=== PATIENT | male | born 1985 | race Hispanic/Latino ===

== ENCOUNTER → 2020-01-03 | Outpatient (CLI) | payer OTHER ==
[~2020-01-03] MED LIST: ASPI-556 PO; HYDR-3422 PO; INSU100V12 SQ; INSU100V3 SQ; LINA5TAB PO; METF-446 PO; OLME40TA18 PO; VORT20TA PO
== END | disposition home or self-care (01) ==
LOC: RAH 14:12
PROVIDERS: ATTEND Internal Medicine Cardiovascular Disease
DX: Z13.6 Encounter for screening for cardiovascular disorders (principal)
CPT/HCPCS: 75571

== ENCOUNTER 2020-06-09 17:34 | Inpatient (IN) | payer OTHER ==
[~2020-06-09] VITALS: Ht 182.9 cm; Wt 148.8 kg
[2020-06-09 19:19] LABS: BASOPHILS % (AUTO) 0.6 % (0.0-5.0); EOSINOPHILS % (AUTO) 0.6 % (0.0-8.0); HEMATOCRIT 27.4 % (42-54); MEAN CORPUSCULAR HEMOGLOBIN 25.6 pg (27.0-33.0); MEAN CORPUSCULAR HGB CONC 31.8 g/dL (32.0-36.0); MEAN CORPUSCULAR VOLUME 80.6 fL (79-99); MONOCYTES % (AUTO) 6.3 % (3.0-13.0); NEUTROPHILS % (AUTO) 82.7 % (40.0-77.0); PLATELET COUNT (AUTO) 565 K/uL (130-400); RED CELL DISTRIBUTION WIDTH 12.8 % (11.0-15.5); WHITE BLOOD COUNT (AUTO) 15.8 K/uL (4.8-10.8)
[2020-06-09 19:31] LABS: CARBON DIOXIDE 23 mmol/L (21-32); CHLORIDE 99 mmol/L (101-111); CREATININE 2.2 mg/dL (0.5-1.5); GLOMERULAR FILTR. RATE CALC 37 mL/min (>60); GLUCOSE,RANDOM 183 mg/dL (70-105); POTASSIUM 4.2 mmol/L (3.5-5.1); SODIUM SERUM 131 mmol/L (136-145); UREA NITROGEN, BLOOD 44 mg/dL (7-18)
[2020-06-09 19:35] LABS: INR 1.17 (0.85-1.15); PROTHROMBIN TIME 12.3 SEC (9.6-11.6)
[2020-06-09 19:36] LABS: PARTIAL THROMBOPLASTIN TIME 27.5 SEC (26.3-35.5)
[2020-06-09 19:43] LABS: ALANINE AMINOTRANSFERASE 15 U/L (12-78); ALBUMIN 1.9 g/dL (3.5-5.0); ASPARTATE AMINOTRANSFERASE 24 U/L (10-37); BILIRUBIN,TOTAL 0.2 mg/dL (0.2-1.0); CREATINE KINASE, TOTAL 225 U/L (21-232); MYOGLOBIN 222 ng/mL (10-92); TROPONIN I < 0.04 ng/mL (0.00-0.06)
[2020-06-09] MEDS ORDERED: ZOSYN 3.375GM+NS 50ML 50 ML IV ONE (21:09)
[2020-06-09] MEDS ORDERED: ACETAMINOPHEN 500 MG TABLET ONE (21:10)
[2020-06-09 21:11] LABS: APPEARANCE,URINE Cloudy (CLEAR); BILIRUBIN,URINE Negative (NEGATIVE); COLOR,URINE Yellow (YELLOW); GLUCOSE, URINE (UA) 250 mg/dL (NEGATIVE); KETONES,URINE Negative (NEGATIVE); LEUKOCYTE ESTERASE ,URINE Trace (NEGATIVE); NITRATE,URINE Negative (NEGATIVE); OCCULT BLOOD,URINE Moderate (NEGATIVE); PROTEIN,URINE 300 mg/dL (NEGATIVE)
[2020-06-09 21:16] LABS: AMORPHOUS SEDIMENT,UR Many /LPF (None Seen); BACTERIA,URINE Few /HPF (None Seen); HYALINE CASTS, URINE 0-1 /LPF (0-1 /LPF); RBC,URINE 0-1 /HPF (0-1); SQUAMOUS EPITHELIAL CELL,UR None Seen /HPF (0-2)
[2020-06-09] MEDS ORDERED: DEXTROSE 50%-WATER 50 ML DISP.SYRIN IV PRN (21:30)
[2020-06-09] MEDS ORDERED: CEFTRIAXONE 1G VIAL IV SCH (21:30)
[2020-06-09] MEDS ORDERED: POTASSIUM CHLORIDE 10% ELIXIR 20 MEQ/15 ML UDCUP PO PRN (21:30)
[2020-06-09] MEDS ORDERED: ONDANSETRON 4MG INJ IV PRN (21:30)
[2020-06-09] MEDS ORDERED: LACTULOSE 20 GM/30 ML UDCUP PO PRN (21:30)
[2020-06-09] MEDS ORDERED: ACETAMINOPHEN 325 MG TAB PO PRN (21:30)
[2020-06-09] MEDS ORDERED: KCL 20 MEQ ERTAB PO PRN (21:30)
[2020-06-09] MEDS ORDERED: MAG/ALUM/SIMETH 30 ML UDCUP PO PRN (21:30)
[2020-06-09] MEDS ORDERED: NITROGLYCERIN 0.4 MG SL TAB SL PRN (21:30)
[2020-06-09] MEDS ORDERED: POTASSIUM CHLORIDE 20MEQ/100ML 100 ML IV PRN ×2 (21:30)
[2020-06-09] MEDS: LACTATED RINGERS 1000ML 1,000 ML IV SCH (21:30)
[2020-06-09] MEDS ORDERED: GUAIFENESIN-DM 200/20 MG 10 ML PO PRN (21:30)
[2020-06-09] MEDS ORDERED: GLUCAGON 1MG KIT 1 MG ML IM PRN (21:30)
[2020-06-09] MEDS ORDERED: DiphenhydrAMINE HCL 50 MG/ML VIAL IV PRN (21:30)
[2020-06-10] VITALS (21 sets, daily range): BP systolic 103–150; BP diastolic 53–83
[2020-06-10] MEDS ORDERED: CEFTRIAXONE 1G VIAL ONE (00:40)
[2020-06-10] MEDS ORDERED: LACTATED RINGERS 1000ML 1,000 ML IV ONE (00:40)
[2020-06-10] MEDS ORDERED: SERT-439 PO (03:07)
[2020-06-10] MEDS ORDERED: CLOP75TA14 PO (03:07)
[2020-06-10] MEDS ORDERED: PANT40TA54 PO (03:07)
[2020-06-10] MEDS: ZOSYN 3.375GM+NS 50ML 50 ML IV SCH ×3 (05:37→22:14)
[2020-06-10] MEDS: INSULIN HUMULIN R 100 UNIT/ML 3ML SQ SCH ×6 (05:46→21:00)
[2020-06-10 06:26] LABS: BASOPHILS % (AUTO) 0.8 % (0.0-5.0); EOSINOPHILS % (AUTO) 2.5 % (0.0-8.0); HEMATOCRIT 25.3 % (42-54); LYMPHOCYTES % (AUTO) 15.1 % (21.0-51.0); MEAN CORPUSCULAR HEMOGLOBIN 25.4 pg (27.0-33.0); MEAN CORPUSCULAR HGB CONC 31.6 g/dL (32.0-36.0); MEAN CORPUSCULAR VOLUME 80.3 fL (79-99); MONOCYTES % (AUTO) 11.9 % (3.0-13.0); NEUTROPHILS % (AUTO) 68.6 % (40.0-77.0); PLATELET COUNT (AUTO) 502 K/uL (130-400); RED BLOOD CELL COUNT(AUTO) 3.15 MIL/uL (4.50-6.20); RED CELL DISTRIBUTION WIDTH 13.1 % (11.0-15.5); WHITE BLOOD COUNT (AUTO) 13.1 K/uL (4.8-10.8)
[2020-06-10 07:14] LABS: ALBUMIN 1.6 g/dL (3.5-5.0); BILIRUBIN,TOTAL 0.3 mg/dL (0.2-1.0); CREATININE 2.4 mg/dL (0.5-1.5); POTASSIUM 4.1 mmol/L (3.5-5.1); TOTAL PROTEIN, SERUM 8.2 g/dL (6.0-8.3)
[2020-06-10] MEDS ORDERED: INSULIN GLARGINE 100 UNITS/ML 10 ML VIAL SQ SCH ×2 (08:30→09:00)
[2020-06-10] MEDS: ENOXAPARIN SODIUM 30 MG/0.3 ML SQ SCH (09:00)
[2020-06-10] MEDS: LACTATED RINGERS 1000ML 1,000 ML IV SCH ×2 (10:28→17:30)
[2020-06-10 11:08] LABS: PROTEIN,URINE RANDOM 162.9 mg/dL (0-11.9)
[2020-06-10] MEDS: ZYVOX 600 MG TAB PO SCH ×2 (11:49→22:14)
[2020-06-10] MEDS ORDERED: BUPIVACAINE/PF 0.5% 30ML VIAL ONE (15:28)
[2020-06-10] MEDS ORDERED: LIDOCAINE HCL 1% 20 ML VIAL ONE (15:28)
[2020-06-10] MEDS ORDERED: 0.9%NACL 1000ML 1,000 ML IV ONE (17:28)
[2020-06-10] MEDS ORDERED: MIDAZOLAM HCL 1 MG/ML 2ML VIAL ONE ×2 (18:15→19:01)
[2020-06-10] MEDS ORDERED: FENTANYL CITRATE PF 50 MCG/1 ML 2ML VIAL ONE ×2 (18:17→18:47)
[2020-06-11] VITALS (9 sets, daily range): BP systolic 110–140; BP diastolic 62–84
[2020-06-11] MEDS: ZOSYN 3.375GM+NS 50ML 50 ML IV SCH ×3 (05:27→21:05)
[2020-06-11] MEDS: INSULIN HUMULIN R 100 UNIT/ML 3ML SQ SCH ×7 (05:36→21:06)
[2020-06-11 06:13] LABS: BASOPHILS % (AUTO) 0.5 % (0.0-5.0); EOSINOPHILS % (AUTO) 2.8 % (0.0-8.0); HEMATOCRIT 21.4 % (42-54); LYMPHOCYTES % (AUTO) 12.9 % (21.0-51.0); MEAN CORPUSCULAR HEMOGLOBIN 25.9 pg (27.0-33.0); MEAN CORPUSCULAR HGB CONC 31.8 g/dL (32.0-36.0); MEAN CORPUSCULAR VOLUME 81.4 fL (79-99); MONOCYTES % (AUTO) 8.7 % (3.0-13.0); NEUTROPHILS % (AUTO) 74.3 % (40.0-77.0); PLATELET COUNT (AUTO) 483 K/uL (130-400); RED BLOOD CELL COUNT(AUTO) 2.63 MIL/uL (4.50-6.20); RED CELL DISTRIBUTION WIDTH 13.1 % (11.0-15.5); WHITE BLOOD COUNT (AUTO) 12.5 K/uL (4.8-10.8)
[2020-06-11 06:35] LABS: HEMOGLOBIN A1C 9.5 % (4.0-6.0)
[2020-06-11 06:43] LABS: % IRON SATURATION 17.5 % (30-44)
[2020-06-11 06:48] LABS: ALBUMIN 1.5 g/dL (3.5-5.0); BILIRUBIN,TOTAL 0.4 mg/dL (0.2-1.0); CREATININE 2.1 mg/dL (0.5-1.5); POTASSIUM 4.3 mmol/L (3.5-5.1); TOTAL PROTEIN, SERUM 7.3 g/dL (6.0-8.3)
[2020-06-11 06:56] LABS: CRP QUANTITATIVE 196.6 mg/L (0.00-9.0)
[2020-06-11] MEDS: INSULIN GLARGINE 100 UNITS/ML 10 ML VIAL SQ SCH (09:00)
[2020-06-11] MEDS: IRON SUCROSE COMPLEX 100 MG in 0.9%NACL 50ML 50 ML IV SCH (09:00)
[2020-06-11] MEDS ORDERED: HYDROMORPHONE 2 MG VIAL (2MG/ML) IVP PRN ×2 (10:58→11:15)
[2020-06-11] MEDS ORDERED: MORPHINE 2 MG SYG IVP PRN ×2 (10:58→11:00)
[2020-06-11] MEDS ORDERED: COMPOUND IV MISC 1 EACH IVSOLN MISC PRN (11:00)
[2020-06-11] MEDS: ZYVOX 600 MG TAB PO SCH ×2 (11:05→21:06)
[2020-06-11] MEDS: ENOXAPARIN SODIUM 30 MG/0.3 ML SQ SCH (11:07)
[2020-06-11] MEDS ORDERED: 0.9% NACL 250ML 250 ML IV ONE (11:26)
[2020-06-11] MEDS ORDERED: FUROSEMIDE 40MG VIAL ONE (13:34)
[2020-06-11] MEDS ORDERED: FUROSEMIDE 40MG VIAL IV SCH (15:15)
[2020-06-11 19:49] LABS: HEMATOCRIT 23.1 % (42-54)
[2020-06-11] MEDS: DIPHENHYDRAMINE HCL 25 MG CAPSULE PO PRN (21:06)
[2020-06-11] MEDS: ACETAMINOPHEN 325 MG TAB PO PRN (21:08)
[2020-06-12 04:00] VITALS: BP 106/61
[2020-06-12] MEDS: ZOSYN 3.375GM+NS 50ML 50 ML IV SCH ×3 (05:54→21:13)
[2020-06-12] MEDS: INSULIN HUMULIN R 100 UNIT/ML 3ML SQ SCH ×7 (05:57→21:00)
[2020-06-12 06:00] LABS: BASOPHILS % (AUTO) 0.9 % (0.0-5.0); EOSINOPHILS % (AUTO) 7.5 % (0.0-8.0); HEMATOCRIT 23.6 % (42-54); LYMPHOCYTES % (AUTO) 19.8 % (21.0-51.0); MEAN CORPUSCULAR HEMOGLOBIN 25.1 pg (27.0-33.0); MEAN CORPUSCULAR HGB CONC 30.5 g/dL (32.0-36.0); MEAN CORPUSCULAR VOLUME 82.2 fL (79-99); MONOCYTES % (AUTO) 8.6 % (3.0-13.0); NEUTROPHILS % (AUTO) 61.6 % (40.0-77.0); PLATELET COUNT (AUTO) 471 K/uL (130-400); RED BLOOD CELL COUNT(AUTO) 2.87 MIL/uL (4.50-6.20); RED CELL DISTRIBUTION WIDTH 13.1 % (11.0-15.5); WHITE BLOOD COUNT (AUTO) 11.4 K/uL (4.8-10.8)
[2020-06-12 06:29] LABS: ALBUMIN 1.4 g/dL (3.5-5.0); BILIRUBIN,TOTAL 0.2 mg/dL (0.2-1.0); POTASSIUM 4.1 mmol/L (3.5-5.1); TOTAL PROTEIN, SERUM 7.4 g/dL (6.0-8.3)
[2020-06-12 07:04] LABS: CRP QUANTITATIVE 175.5 mg/L (0.00-9.0)
[2020-06-12 08:05] VITALS: BP 114/72
[2020-06-12] MEDS: IRON SUCROSE COMPLEX 100 MG in 0.9%NACL 50ML 50 ML IV SCH (09:00)
[2020-06-12] MEDS: ENOXAPARIN SODIUM 30 MG/0.3 ML SQ SCH (10:46)
[2020-06-12] MEDS: ZYVOX 600 MG TAB PO SCH ×2 (10:46→21:13)
[2020-06-12] MEDS: INSULIN GLARGINE 100 UNITS/ML 10 ML VIAL SQ SCH (10:47)
[2020-06-12 11:33] VITALS: BP 125/71
[2020-06-12] MEDS ORDERED: LACTATED RINGERS 1000ML 1,000 ML IV ONE (12:15)
[2020-06-12 16:35] VITALS: BP 112/70
[2020-06-12 20:25] VITALS: BP 130/84
[2020-06-12] MEDS: DIPHENHYDRAMINE HCL 25 MG CAPSULE PO PRN (21:14)
[2020-06-12] MEDS: ACETAMINOPHEN 325 MG TAB PO PRN (21:14)
[2020-06-12 23:22] VITALS: BP 122/74
[2020-06-13 03:34] VITALS: BP 139/84
[2020-06-13] MEDS ORDERED: LACTATED RINGERS 1000ML 1,000 ML IV ONE (03:48)
[2020-06-13] MEDS: ZOSYN 3.375GM+NS 50ML 50 ML IV SCH ×2 (03:49→12:32)
[2020-06-13 04:30] LABS: ALBUMIN 1.5 g/dL (3.5-5.0); BILIRUBIN,TOTAL 0.2 mg/dL (0.2-1.0); CREATININE 1.7 mg/dL (0.5-1.5); TOTAL PROTEIN, SERUM 7.7 g/dL (6.0-8.3)
[2020-06-13] MEDS: INSULIN HUMULIN R 100 UNIT/ML 3ML SQ SCH ×6 (06:04→17:38)
[2020-06-13 07:27] VITALS: BP 137/81
[2020-06-13] MEDS: ENOXAPARIN SODIUM 30 MG/0.3 ML SQ SCH (09:33)
[2020-06-13] MEDS: INSULIN GLARGINE 100 UNITS/ML 10 ML VIAL SQ SCH (09:36)
[2020-06-13] MEDS: IRON SUCROSE COMPLEX 100 MG in 0.9%NACL 50ML 50 ML IV SCH (10:09)
[2020-06-13] MEDS: ZYVOX 600 MG TAB PO SCH (10:09)
[2020-06-13 10:58] VITALS: BP 126/86
[2020-06-13 16:18] VITALS: BP 144/89
[2020-09-07] MEDS ORDERED: PANT40GR PO (20:25)
[2020-09-07] MEDS ORDERED: SERT-439 PO (20:25)
[2020-09-07] MEDS ORDERED: INSLAN SQ (20:25)
[2020-09-07] MEDS ORDERED: FERR324T4 PO (20:25)
[2020-09-07] MEDS ORDERED: CLOP75TA32 PO (20:25)
[2020-09-07] MEDS ORDERED: EMPA25TA PO (20:25)
[2020-09-07] MEDS ORDERED: INSU100C14 SQ (20:25)
[2020-09-07] MEDS ORDERED: METF-446 PO (20:25)
[2020-09-07] MEDS ORDERED: OLME40TA18 PO (20:25)
[2020-09-07] MEDS ORDERED: FURO20TA4 PO (20:25)
[2020-09-07] MEDS ORDERED: ASPI-1197 PO (20:25)
== END 2020-06-13 20:00 | disposition left against medical advice (07) | DRG 500 ==
LOC: EDH 17:34 → EDHIP 21:24 → 3CH 06-10 02:33
PROVIDERS: ADMIT Family Medicine; ATTEND Family Medicine
PROC: 0LXV0ZZ Transfer Right Foot Tendon, Open Approach (ICD-10-PCS; 2020-06-10)
PROC: 0QTL0ZZ Resection of Right Tarsal, Open Approach (ICD-10-PCS; 2020-06-10)
PROC: 0QBN0ZZ Excision of Right Metatarsal, Open Approach (ICD-10-PCS; principal; 2020-06-10 18:14)
PROC: 30233N1 Transfusion of Nonautologous Red Blood Cells into Peripheral Vein, Percutaneous Approach (ICD-10-PCS; 2020-06-11)
DX: T87.43 Infection of amputation stump, right lower extremity (principal); A41.9 Sepsis, unspecified organism; M72.6 Necrotizing fasciitis; E87.1 Hypo-osmolality and hyponatremia; N17.9 Acute kidney failure, unspecified; M86.9 Osteomyelitis, unspecified; L03.115 Cellulitis of right lower limb; L02.611 Cutaneous abscess of right foot; Z68.41 Body mass index [BMI] 40.0-44.9, adult; E11.51 Type 2 diabetes mellitus with diabetic peripheral angiopathy without gangrene; E11.621 Type 2 diabetes mellitus with foot ulcer; E87.6 Hypokalemia; K29.70 Gastritis, unspecified, without bleeding; I10 Essential (primary) hypertension; B96.1 Klebsiella pneumoniae [K. pneumoniae] as the cause of diseases classified elsewhere; D64.9 Anemia, unspecified; E11.22 Type 2 diabetes mellitus with diabetic chronic kidney disease; E11.319 Type 2 diabetes mellitus with unspecified diabetic retinopathy without macular edema; E11.65 Type 2 diabetes mellitus with hyperglycemia; E11.69 Type 2 diabetes mellitus with other specified complication; E86.0 Dehydration; F32.9 Major depressive disorder, single episode, unspecified; F41.9 Anxiety disorder, unspecified; E66.01 Morbid (severe) obesity due to excess calories; R74.8 Abnormal levels of other serum enzymes; I12.9 Hypertensive chronic kidney disease with stage 1 through stage 4 chronic kidney disease, or unspecified chronic kidney disease; E87.5 Hyperkalemia; N18.9 Chronic kidney disease, unspecified; L97.519 Non-pressure chronic ulcer of other part of right foot with unspecified severity; Z79.4 Long term (current) use of insulin; Z80.1 Family history of malignant neoplasm of trachea, bronchus and lung; Z82.49 Family history of ischemic heart disease and other diseases of the circulatory system; Z82.5 Family history of asthma and other chronic lower respiratory diseases; Z83.3 Family history of diabetes mellitus; Z89.439 Acquired absence of unspecified foot; Y83.8 Other surgical procedures as the cause of abnormal reaction of the patient, or of later complication, without mention of misadventure at the time of the procedure; Y92.89 Other specified places as the place of occurrence of the external cause; Z20.822 Contact with and (suspected) exposure to COVID-19
CPT/HCPCS: 36415; 36430; 71045; 73630; 73718; 76770; 80053; 81001; 82550; 82570; 82948; 83036; 83540; 83550; 83605; 83874; 84145; 84156; 84484; 85014; 85018; 85025; 85610; 85730; 86140; 86850; 86900; 86901; 86923; 87040; 87070; 87076; 87077; 87088; 87186; 87205; 87426; 88304; 88311; 93005; G0378; J0696; J1170; J1650; J1756; J1815; J1940; J2250; J2543; J3010; J3490; J7030; J7050; J7120; P9016; Q0163; U0003

== ENCOUNTER 2020-06-27 18:52 | Inpatient (IN) | payer OTHER ==
[~2020-06-27] VITALS: Ht 182.9 cm; Wt 150.7 kg
[~2020-06-27 18:52] MED LIST changes: +CLOP75TA14 PO; -HYDR-3422 PO; -INSU100V3 SQ; -LINA5TAB PO; +PANT40TA54 PO; +SERT-439 PO; -VORT20TA PO
[2020-06-27 20:13] LABS: APPEARANCE,URINE Cloudy (CLEAR); BILIRUBIN,URINE Negative (NEGATIVE); COLOR,URINE Yellow (YELLOW); GLUCOSE, URINE (UA) 250 mg/dL (NEGATIVE); KETONES,URINE Negative (NEGATIVE); LEUKOCYTE ESTERASE ,URINE Negative (NEGATIVE); NITRATE,URINE Negative (NEGATIVE); OCCULT BLOOD,URINE Large (NEGATIVE); PROTEIN,URINE 300 mg/dL (NEGATIVE); UROBILINOGEN,URINE 0.2 mg/dL (0.2-1.0)
[2020-06-27 20:27] LABS: BACTERIA,URINE Few /HPF (None Seen); MUCUS,URINE Few LPF (None Seen); SQUAMOUS EPITHELIAL CELL,UR Few /HPF (0-2)
[2020-06-27] MEDS ORDERED: ZOSYN 3.375GM+NS 50ML 50 ML IV ONE (20:36)
[2020-06-27] MEDS ORDERED: 0.9%NACL 1000ML 3,000 ML IV ONE (20:37)
[2020-06-27] MEDS ORDERED: ACETAMINOPHEN 500 MG TABLET ONE (20:44)
[2020-06-27 20:46] LABS: BASOPHILS % (AUTO) 0.8 % (0.0-5.0); EOSINOPHILS % (AUTO) 2.1 % (0.0-8.0); HEMATOCRIT 27.2 % (42-54); LYMPHOCYTES % (AUTO) 13.1 % (21.0-51.0); MEAN CORPUSCULAR HEMOGLOBIN 25.4 pg (27.0-33.0); MEAN CORPUSCULAR HGB CONC 31.6 g/dL (32.0-36.0); MEAN CORPUSCULAR VOLUME 80.2 fL (79-99); MONOCYTES % (AUTO) 7.8 % (3.0-13.0); NEUTROPHILS % (AUTO) 75.7 % (40.0-77.0); PLATELET COUNT (AUTO) 556 K/uL (130-400); RED BLOOD CELL COUNT(AUTO) 3.39 MIL/uL (4.50-6.20); RED CELL DISTRIBUTION WIDTH 14.5 % (11.0-15.5); WHITE BLOOD COUNT (AUTO) 10.1 K/uL (4.8-10.8)
[2020-06-27 20:58] LABS: INR 1.08 (0.85-1.15); PROTHROMBIN TIME 11.7 SEC (9.6-11.6)
[2020-06-27 20:59] LABS: CREATININE 2.1 mg/dL (0.5-1.5); PARTIAL THROMBOPLASTIN TIME 28.2 SEC (26.3-35.5); POTASSIUM 4.9 mmol/L (3.5-5.1)
[2020-06-27 21:03] LABS: ALBUMIN 2.1 g/dL (3.5-5.0); BILIRUBIN,TOTAL 0.2 mg/dL (0.2-1.0); TOTAL PROTEIN, SERUM 9.6 g/dL (6.0-8.3)
[2020-06-27 21:16] LABS: CRP QUANTITATIVE 204.3 mg/L (0.00-9.0)
[2020-06-27] MEDS ORDERED: VANCOMYCIN 1G/250ML KIT 500 ML IV ONE (21:17)
[2020-06-27 22:04] LABS: ERYTHROCYTE SEDIMENTATION RATE 56 MM/HR (0-15)
[2020-06-28] MEDS ORDERED: ACETAMINOPHEN 325 MG TAB PO PRN ×2
[2020-06-28] MEDS ORDERED: VANCOMYCIN 1G/250ML KIT 250 ML IV SCH
[2020-06-28] MEDS ORDERED: INSULIN HUMULIN R 100 UNIT/ML 3ML SQ SCH
[2020-06-28] MEDS ORDERED: VANCOMYCIN PROTOCOL PER PHARMACY IV PRN
[2020-06-28 04:00] VITALS: BP 151/91
[2020-06-28 04:25] LABS: HEMOGLOBIN A1C 8.2 % (4.0-6.0)
[2020-06-28] MEDS: ZOSYN 3.375GM+NS 50ML 50 ML IV SCH ×3 (04:49→20:08)
[2020-06-28] MEDS: INSULIN LISPRO 100 UNIT/ML 3ML SQ SCH ×7 (06:26→20:10)
[2020-06-28 08:00] VITALS: BP 153/85
[2020-06-28] MEDS: FAMOTIDINE 20MG VIAL IV SCH (10:06)
[2020-06-28] MEDS: SERTRALINE HCL 50 MG TABLET PO SCH (10:06)
[2020-06-28 12:00] VITALS: BP 147/87
[2020-06-28] MEDS: ASPIRIN 81MG CHEW TAB PO SCH (13:46)
[2020-06-28] MEDS: CLOPIDOGREL 75MG TAB PO SCH (13:46)
[2020-06-28] MEDS: ENOXAPARIN SODIUM 30 MG/0.3 ML SQ SCH (13:47)
[2020-06-28] MEDS: ZYVOX 600 MG TAB PO SCH ×2 (13:47→20:08)
[2020-06-28 16:00] VITALS: BP 142/71
[2020-06-28 19:32] VITALS: BP 150/89
[2020-06-28] MEDS: INSULIN GLARGINE 100 UNITS/ML 10 ML VIAL SQ SCH (20:09)
[2020-06-28 23:49] VITALS: BP 142/79
[2020-06-29] MEDS: ONDANSETRON 4MG INJ IV PRN (02:09)
[2020-06-29 04:00] VITALS: BP 140/79
[2020-06-29] MEDS: ZOSYN 3.375GM+NS 50ML 50 ML IV SCH ×3 (04:09→20:48)
[2020-06-29] MEDS: INSULIN LISPRO 100 UNIT/ML 3ML SQ SCH ×7 (05:36→20:49)
[2020-06-29 06:11] LABS: EOSINOPHILS % (AUTO) 0.6 % (0.0-8.0); HEMATOCRIT 22.2 % (42-54); LYMPHOCYTES % (AUTO) 14.9 % (21.0-51.0); MEAN CORPUSCULAR HEMOGLOBIN 24.8 pg (27.0-33.0); MEAN CORPUSCULAR HGB CONC 30.6 g/dL (32.0-36.0); MONOCYTES % (AUTO) 7.4 % (3.0-13.0); NEUTROPHILS % (AUTO) 75.4 % (40.0-77.0); PLATELET COUNT (AUTO) 472 K/uL (130-400); RED BLOOD CELL COUNT(AUTO) 2.74 MIL/uL (4.50-6.20); RED CELL DISTRIBUTION WIDTH 14.6 % (11.0-15.5); WHITE BLOOD COUNT (AUTO) 8.6 K/uL (4.8-10.8)
[2020-06-29 06:22] LABS: CREATININE 1.9 mg/dL (0.5-1.5); POTASSIUM 4.9 mmol/L (3.5-5.1)
[2020-06-29 06:50] LABS: HEMATOCRIT 21.7 % (42-54)
[2020-06-29 08:00] VITALS: BP 130/74
[2020-06-29] MEDS: CLOPIDOGREL 75MG TAB PO SCH (09:00)
[2020-06-29] MEDS: ASPIRIN 81MG CHEW TAB PO SCH (09:00)
[2020-06-29] MEDS: ENOXAPARIN SODIUM 30 MG/0.3 ML SQ SCH (09:00)
[2020-06-29] MEDS: FAMOTIDINE 20MG VIAL IV SCH (10:06)
[2020-06-29] MEDS: SERTRALINE HCL 50 MG TABLET PO SCH (10:06)
[2020-06-29] MEDS: 0.9%NACL 1000ML 1,000 ML IV SCH ×2 (10:06→19:50)
[2020-06-29 11:57] VITALS: BP 138/69
[2020-06-29] MEDS: ZYVOX 600 MG TAB PO SCH ×2 (14:05→23:16)
[2020-06-29 16:00] VITALS: BP 132/83
[2020-06-29 20:00] VITALS: BP 128/80
[2020-06-29] MEDS: INSULIN GLARGINE 100 UNITS/ML 10 ML VIAL SQ SCH (20:48)
[2020-06-30] VITALS (25 sets, daily range): BP systolic 118–164; BP diastolic 70–95
[2020-06-30] MEDS: ZOSYN 3.375GM+NS 50ML 50 ML IV SCH ×3 (04:46→21:41)
[2020-06-30] MEDS: INSULIN LISPRO 100 UNIT/ML 3ML SQ SCH ×7 (05:40→21:53)
[2020-06-30 05:42] LABS: BASOPHILS % (AUTO) 0.7 % (0.0-5.0); EOSINOPHILS % (AUTO) 3.4 % (0.0-8.0); LYMPHOCYTES % (AUTO) 17.8 % (21.0-51.0); MEAN CORPUSCULAR HEMOGLOBIN 25.3 pg (27.0-33.0); MEAN CORPUSCULAR HGB CONC 30.8 g/dL (32.0-36.0); MEAN CORPUSCULAR VOLUME 81.9 fL (79-99); MONOCYTES % (AUTO) 8.8 % (3.0-13.0); NEUTROPHILS % (AUTO) 68.2 % (40.0-77.0); PLATELET COUNT (AUTO) 496 K/uL (130-400); RED BLOOD CELL COUNT(AUTO) 2.93 MIL/uL (4.50-6.20); RED CELL DISTRIBUTION WIDTH 14.6 % (11.0-15.5); WHITE BLOOD COUNT (AUTO) 10.1 K/uL (4.8-10.8)
[2020-06-30 05:48] LABS: CREATININE 1.9 mg/dL (0.5-1.5); POTASSIUM 4.3 mmol/L (3.5-5.1)
[2020-06-30] MEDS: FAMOTIDINE 20MG VIAL IV SCH (09:00)
[2020-06-30] MEDS: ASPIRIN 81MG CHEW TAB PO SCH (09:00)
[2020-06-30] MEDS: SERTRALINE HCL 50 MG TABLET PO SCH (09:00)
[2020-06-30] MEDS: CLOPIDOGREL 75MG TAB PO SCH (09:00)
[2020-06-30] MEDS: ENOXAPARIN SODIUM 30 MG/0.3 ML SQ SCH (09:00)
[2020-06-30] MEDS: 0.9%NACL 1000ML 1,000 ML IV SCH ×2 (09:10→22:30)
[2020-06-30] MEDS ORDERED: LIDOCAINE PF 100MG/5ML (2%) SYRINGE 5ML ONE (10:55)
[2020-06-30] MEDS ORDERED: DEXAMETHASONE SOD PHOSPHATE 10MG/ML 1ML VIAL ONE (10:56)
[2020-06-30] MEDS ORDERED: FENTANYL CITRATE PF 50 MCG/1 ML 2ML VIAL ONE (10:56)
[2020-06-30] MEDS ORDERED: MIDAZOLAM HCL 1 MG/ML 2ML VIAL ONE (10:56)
[2020-06-30] MEDS ORDERED: PROPOFOL 10 MG/ML 20ML VIAL IV ONE (10:56)
[2020-06-30] MEDS ORDERED: ONDANSETRON 4MG INJ ONE (10:56)
[2020-06-30] MEDS ORDERED: ROCURONIUM 10MG/1ML SYR 10 MG/ML ML ONE (10:57)
[2020-06-30] MEDS ORDERED: ROPIVACAINE 0.5% 5MG/ML 30ML IJ ONE (11:00)
[2020-06-30] MEDS: ZYVOX 600 MG TAB PO SCH ×2 (11:30→23:38)
[2020-06-30] MEDS ORDERED: EPHEDRINE SULFATE 50 MG/ML AMPULE ONE (12:30)
[2020-06-30] MEDS ORDERED: GLYCOPYRROLATE 1 MG/5 ML SYRINGE ONE (12:54)
[2020-06-30] MEDS ORDERED: NEOSTIGMINE 5MG/5ML SYR IV ONE (12:54)
[2020-06-30] MEDS ORDERED: HYDROCODONE/ACETAMINOPHEN 5/325 MG TAB ONE (16:27)
[2020-06-30] MEDS ORDERED: TRAMADOL HCL 50 MG TABLET ONE (16:34)
[2020-06-30] MEDS: INSULIN GLARGINE 100 UNITS/ML 10 ML VIAL SQ SCH (21:54)
[2020-06-30] MEDS: MORPHINE 2 MG SYG IV PRN (23:58)
[2020-06-30] MEDS: ONDANSETRON 4MG INJ IV PRN (23:58)
[2020-07-01 03:53] VITALS: BP 148/86
[2020-07-01 06:05] LABS: BASOPHILS % (AUTO) 0.2 % (0.0-5.0); EOSINOPHILS % (AUTO) 0.1 % (0.0-8.0); HEMATOCRIT 21.7 % (42-54); LYMPHOCYTES % (AUTO) 13.2 % (21.0-51.0); MEAN CORPUSCULAR HEMOGLOBIN 25.2 pg (27.0-33.0); MEAN CORPUSCULAR HGB CONC 30.9 g/dL (32.0-36.0); MEAN CORPUSCULAR VOLUME 81.6 fL (79-99); MONOCYTES % (AUTO) 7.1 % (3.0-13.0); PLATELET COUNT (AUTO) 484 K/uL (130-400); RED BLOOD CELL COUNT(AUTO) 2.66 MIL/uL (4.50-6.20); RED CELL DISTRIBUTION WIDTH 14.5 % (11.0-15.5); WHITE BLOOD COUNT (AUTO) 10.4 K/uL (4.8-10.8)
[2020-07-01] MEDS: ZOSYN 3.375GM+NS 50ML 50 ML IV SCH ×3 (06:18→21:10)
[2020-07-01] MEDS: MORPHINE 2 MG SYG IV PRN (06:19)
[2020-07-01] MEDS: ONDANSETRON 4MG INJ IV PRN (06:19)
[2020-07-01 06:28] LABS: ALBUMIN 1.6 g/dL (3.5-5.0); BILIRUBIN,TOTAL 0.3 mg/dL (0.2-1.0); CREATININE 1.7 mg/dL (0.5-1.5); POTASSIUM 4.8 mmol/L (3.5-5.1); TOTAL PROTEIN, SERUM 7.7 g/dL (6.0-8.3)
[2020-07-01] MEDS: INSULIN LISPRO 100 UNIT/ML 3ML SQ SCH ×7 (06:37→21:22)
[2020-07-01 08:00] VITALS: BP 143/88
[2020-07-01] MEDS: FAMOTIDINE 20MG VIAL IV SCH (10:44)
[2020-07-01] MEDS: ASPIRIN 81MG CHEW TAB PO SCH (10:44)
[2020-07-01] MEDS: CLOPIDOGREL 75MG TAB PO SCH (10:45)
[2020-07-01] MEDS: SERTRALINE HCL 50 MG TABLET PO SCH (10:45)
[2020-07-01] MEDS: ENOXAPARIN SODIUM 30 MG/0.3 ML SQ SCH (10:45)
[2020-07-01] MEDS: ZYVOX 600 MG TAB PO SCH ×2 (10:46→21:10)
[2020-07-01] MEDS: ACETAMINOPHEN WITH CODEINE 1 TAB TAB PO PRN ×2 (10:47→21:14)
[2020-07-01 11:58] VITALS: BP 124/74
[2020-07-01] MEDS: 0.9%NACL 1000ML 1,000 ML IV SCH (14:23)
[2020-07-01 16:00] VITALS: BP 124/80
[2020-07-01 19:38] VITALS: BP 119/68
[2020-07-01] MEDS: INSULIN GLARGINE 100 UNITS/ML 10 ML VIAL SQ SCH (21:22)
[2020-07-01 23:23] VITALS: BP 123/78
[2020-07-02] MEDS: 0.9%NACL 1000ML 1,000 ML IV SCH (01:10)
[2020-07-02 03:50] VITALS: BP 130/75
[2020-07-02 04:35] LABS: BASOPHILS % (AUTO) 0.7 % (0.0-5.0); EOSINOPHILS % (AUTO) 4.4 % (0.0-8.0); HEMATOCRIT 22.3 % (42-54); LYMPHOCYTES % (AUTO) 26.4 % (21.0-51.0); MEAN CORPUSCULAR HEMOGLOBIN 25.9 pg (27.0-33.0); MEAN CORPUSCULAR HGB CONC 31.8 g/dL (32.0-36.0); MEAN CORPUSCULAR VOLUME 81.4 fL (79-99); MONOCYTES % (AUTO) 7.9 % (3.0-13.0); NEUTROPHILS % (AUTO) 58.5 % (40.0-77.0); PLATELET COUNT (AUTO) 474 K/uL (130-400); RED BLOOD CELL COUNT(AUTO) 2.74 MIL/uL (4.50-6.20); RED CELL DISTRIBUTION WIDTH 14.7 % (11.0-15.5)
[2020-07-02] MEDS: ZOSYN 3.375GM+NS 50ML 50 ML IV SCH ×2 (04:55→12:36)
[2020-07-02 04:56] LABS: ALBUMIN 1.7 g/dL (3.5-5.0); BILIRUBIN,TOTAL 0.2 mg/dL (0.2-1.0); CREATININE 1.6 mg/dL (0.5-1.5); POTASSIUM 4.4 mmol/L (3.5-5.1); TOTAL PROTEIN, SERUM 7.3 g/dL (6.0-8.3)
[2020-07-02] MEDS: INSULIN LISPRO 100 UNIT/ML 3ML SQ SCH ×7 (06:01→21:00)
[2020-07-02] MEDS: ENOXAPARIN SODIUM 30 MG/0.3 ML SQ SCH (07:20)
[2020-07-02] MEDS: SERTRALINE HCL 50 MG TABLET PO SCH (07:21)
[2020-07-02] MEDS: ASPIRIN 81MG CHEW TAB PO SCH (07:21)
[2020-07-02] MEDS: CLOPIDOGREL 75MG TAB PO SCH (07:22)
[2020-07-02] MEDS: FAMOTIDINE 20MG VIAL IV SCH (07:22)
[2020-07-02 08:35] VITALS: BP 136/84
[2020-07-02] MEDS: ZYVOX 600 MG TAB PO SCH (11:24)
[2020-07-02 11:33] VITALS: BP 137/84
[2020-07-02] MEDS: ACETAMINOPHEN WITH CODEINE 1 TAB TAB PO PRN ×2 (12:40→22:56)
[2020-07-02 16:00] VITALS: BP 141/87
[2020-07-02 20:11] VITALS: BP 137/84
[2020-07-02] MEDS: INSULIN GLARGINE 100 UNITS/ML 10 ML VIAL SQ SCH (23:00)
[2020-07-02 23:46] VITALS: BP 140/89
[2020-07-03 03:39] VITALS: BP 136/89
[2020-07-03 05:49] LABS: BASOPHILS % (AUTO) 0.5 % (0.0-5.0); EOSINOPHILS % (AUTO) 5.8 % (0.0-8.0); HEMATOCRIT 23.5 % (42-54); LYMPHOCYTES % (AUTO) 25.6 % (21.0-51.0); MEAN CORPUSCULAR HEMOGLOBIN 25.6 pg (27.0-33.0); MEAN CORPUSCULAR HGB CONC 31.5 g/dL (32.0-36.0); MEAN CORPUSCULAR VOLUME 81.3 fL (79-99); MONOCYTES % (AUTO) 7.4 % (3.0-13.0); PLATELET COUNT (AUTO) 519 K/uL (130-400); RED BLOOD CELL COUNT(AUTO) 2.89 MIL/uL (4.50-6.20); RED CELL DISTRIBUTION WIDTH 15.2 % (11.0-15.5); WHITE BLOOD COUNT (AUTO) 8.5 K/uL (4.8-10.8)
[2020-07-03 06:13] LABS: ALBUMIN 1.9 g/dL (3.5-5.0); BILIRUBIN,TOTAL 0.2 mg/dL (0.2-1.0); CREATININE 1.5 mg/dL (0.5-1.5); POTASSIUM 4.2 mmol/L (3.5-5.1); TOTAL PROTEIN, SERUM 7.7 g/dL (6.0-8.3)
[2020-07-03] MEDS: INSULIN LISPRO 100 UNIT/ML 3ML SQ SCH ×4 (07:30→12:03)
[2020-07-03] MEDS: SERTRALINE HCL 50 MG TABLET PO SCH (09:46)
[2020-07-03] MEDS: FAMOTIDINE 20MG VIAL IV SCH (09:46)
[2020-07-03] MEDS: ENOXAPARIN SODIUM 30 MG/0.3 ML SQ SCH (09:46)
[2020-07-03] MEDS: CLOPIDOGREL 75MG TAB PO SCH (09:46)
[2020-07-03] MEDS: ASPIRIN 81MG CHEW TAB PO SCH (09:46)
[2020-07-03 09:54] VITALS: BP 157/95
[2020-07-03] MEDS: ACETAMINOPHEN WITH CODEINE 1 TAB TAB PO PRN (12:34)
[2020-07-03 12:57] VITALS: BP 129/82
[2020-07-03 16:53] VITALS: BP 140/82
[2020-09-07] MEDS ORDERED: METF-446 PO (20:25)
[2020-09-07] MEDS ORDERED: ASPI-1197 PO (20:25)
[2020-09-07] MEDS ORDERED: EMPA25TA PO (20:25)
[2020-09-07] MEDS ORDERED: OLME40TA18 PO (20:25)
[2020-09-07] MEDS ORDERED: SERT-439 PO (20:25)
[2020-09-07] MEDS ORDERED: INSLAN SQ (20:25)
[2020-09-07] MEDS ORDERED: CLOP75TA32 PO (20:25)
[2020-09-07] MEDS ORDERED: INSU100C14 SQ (20:25)
[2020-09-07] MEDS ORDERED: PANT40GR PO (20:25)
[2020-09-07] MEDS ORDERED: FURO20TA4 PO (20:25)
[2020-09-07] MEDS ORDERED: FERR324T4 PO (20:25)
== END 2020-07-03 17:00 | disposition home or self-care (01) | DRG 475 ==
LOC: EDH 18:52 → EDHIP 23:57 → 3CH 06-28 02:16 → 4BH 06-30 20:05
PROVIDERS: ADMIT Internal Medicine; ATTEND Internal Medicine
PROC: 30233N1 Transfusion of Nonautologous Red Blood Cells into Peripheral Vein, Percutaneous Approach (ICD-10-PCS; 2020-06-29)
PROC: 3E0T33Z Introduction of Anti-inflammatory into Peripheral Nerves and Plexi, Percutaneous Approach (ICD-10-PCS; 2020-06-30)
PROC: 0Y6H0Z1 Detachment at Right Lower Leg, High, Open Approach (ICD-10-PCS; principal; 2020-06-30 12:00)
PROC: 3E0T3BZ Introduction of Anesthetic Agent into Peripheral Nerves and Plexi, Percutaneous Approach (ICD-10-PCS; 2020-06-30 12:00)
DX: T87.43 Infection of amputation stump, right lower extremity (principal); E11.52 Type 2 diabetes mellitus with diabetic peripheral angiopathy with gangrene; M86.171 Other acute osteomyelitis, right ankle and foot; L03.115 Cellulitis of right lower limb; N17.9 Acute kidney failure, unspecified; E87.1 Hypo-osmolality and hyponatremia; Z68.41 Body mass index [BMI] 40.0-44.9, adult; M86.671 Other chronic osteomyelitis, right ankle and foot; L97.529 Non-pressure chronic ulcer of other part of left foot with unspecified severity; L97.519 Non-pressure chronic ulcer of other part of right foot with unspecified severity; E66.01 Morbid (severe) obesity due to excess calories; E78.5 Hyperlipidemia, unspecified; I10 Essential (primary) hypertension; E11.69 Type 2 diabetes mellitus with other specified complication; E11.621 Type 2 diabetes mellitus with foot ulcer; D64.9 Anemia, unspecified; E11.42 Type 2 diabetes mellitus with diabetic polyneuropathy; E11.65 Type 2 diabetes mellitus with hyperglycemia; F32.9 Major depressive disorder, single episode, unspecified; F41.9 Anxiety disorder, unspecified; Z20.822 Contact with and (suspected) exposure to COVID-19; Y83.5 Amputation of limb(s) as the cause of abnormal reaction of the patient, or of later complication, without mention of misadventure at the time of the procedure; Y92.89 Other specified places as the place of occurrence of the external cause; Z79.02 Long term (current) use of antithrombotics/antiplatelets; Z79.4 Long term (current) use of insulin; Z79.82 Long term (current) use of aspirin; Z79.899 Other long term (current) drug therapy; Z88.8 Allergy status to other drugs, medicaments and biological substances; Z80.1 Family history of malignant neoplasm of trachea, bronchus and lung; Z83.3 Family history of diabetes mellitus; Z82.5 Family history of asthma and other chronic lower respiratory diseases; Z82.49 Family history of ischemic heart disease and other diseases of the circulatory system
CPT/HCPCS: 36415; 36430; 71045; 73700; 73718; 80048; 80053; 81001; 82948; 83036; 83605; 84145; 85014; 85018; 85025; 85610; 85651; 85730; 86140; 86850; 86900; 86901; 86923; 87040; 87076; 87088; 87426; 88307; 88311; 93005; 97039; G0378; J1100; J1650; J2001; J2250; J2405; J2543; J2704; J2710; J2795; J3010; J3370; J3490; J7030; P9016; U0003

== ENCOUNTER 2020-07-16 07:24 | Emergency (ER) | payer OTHER ==
[2020-09-07] MEDS ORDERED: EMPA25TA PO (20:25)
[2020-09-07] MEDS ORDERED: SERT-439 PO (20:25)
[2020-09-07] MEDS ORDERED: CLOP75TA32 PO (20:25)
[2020-09-07] MEDS ORDERED: INSU100C14 SQ (20:25)
[2020-09-07] MEDS ORDERED: FURO20TA4 PO (20:25)
[2020-09-07] MEDS ORDERED: OLME40TA18 PO (20:25)
[2020-09-07] MEDS ORDERED: PANT40GR PO (20:25)
[2020-09-07] MEDS ORDERED: METF-446 PO (20:25)
[2020-09-07] MEDS ORDERED: ASPI-1197 PO (20:25)
[2020-09-07] MEDS ORDERED: INSLAN SQ (20:25)
[2020-09-07] MEDS ORDERED: FERR324T4 PO (20:25)
== END 2020-07-16 08:29 | disposition home or self-care (01) ==
LOC: EDH 07:24
DX: L76.32 Postprocedural hematoma of skin and subcutaneous tissue following other procedure (principal); I10 Essential (primary) hypertension; F32.9 Major depressive disorder, single episode, unspecified; E11.9 Type 2 diabetes mellitus without complications; I73.9 Peripheral vascular disease, unspecified; Z88.6 Allergy status to analgesic agent; Z89.511 Acquired absence of right leg below knee
CPT/HCPCS: 99281

== ENCOUNTER 2020-08-04 14:05 | Emergency (ER) | payer OTHER ==
[2020-08-04] MEDS ORDERED: TRAMADOL HCL 50 MG TABLET ONE (14:29)
== END 2020-08-04 14:56 | disposition home or self-care (01) ==
LOC: EDH 14:05
DX: S81.811A Laceration without foreign body, right lower leg, initial encounter (principal); F41.9 Anxiety disorder, unspecified; F32.9 Major depressive disorder, single episode, unspecified; E11.9 Type 2 diabetes mellitus without complications; I10 Essential (primary) hypertension; Z88.5 Allergy status to narcotic agent; Z90.49 Acquired absence of other specified parts of digestive tract; W05.1XXA Fall from non-moving nonmotorized scooter, initial encounter; W18.39XA Other fall on same level, initial encounter; Y93.89 Activity, other specified; Y92.090 Kitchen in other non-institutional residence as the place of occurrence of the external cause; Y99.8 Other external cause status
CPT/HCPCS: 73590

== ENCOUNTER 2020-10-19 12:44 | Inpatient (IN) | payer OTHER ==
[~2020-10-19] VITALS: Ht 182.9 cm; Wt 150.3 kg
[~2020-10-19 12:44] MED LIST changes: +ASPI-1197 PO; -ASPI-556 PO; -CLOP75TA14 PO; +CLOP75TA32 PO; +EMPA25TA PO; +FERR324T4 PO; +FURO20TA4 PO; +INSLAN SQ; +INSU100C14 SQ; -INSU100V12 SQ; +PANT40GR PO; -PANT40TA54 PO
[2020-10-19] MEDS ORDERED: POTASSIUM CHLORIDE 20MEQ/100ML 100 ML IV PRN ×2 (16:15)
[2020-10-19] MEDS ORDERED: MAG/ALUM/SIMETH 30 ML UDCUP PO PRN (16:15)
[2020-10-19] MEDS ORDERED: CEFTRIAXONE 1G VIAL IV SCH (16:15)
[2020-10-19] MEDS ORDERED: GUAIFENESIN-DM 200/20 MG 10 ML PO PRN (16:15)
[2020-10-19] MEDS ORDERED: NITROGLYCERIN 0.4 MG SL TAB SL PRN (16:15)
[2020-10-19] MEDS ORDERED: POTASSIUM CHLORIDE 10% ELIXIR 20 MEQ/15 ML UDCUP PO PRN (16:15)
[2020-10-19] MEDS ORDERED: LACTATED RINGERS 1000ML 1,000 ML IV SCH (16:15)
[2020-10-19] MEDS ORDERED: KCL 20 MEQ ERTAB PO PRN (16:15)
[2020-10-19] MEDS ORDERED: ACETAMINOPHEN 325 MG TAB PO PRN ×2 (16:15)
[2020-10-19] MEDS ORDERED: ONDANSETRON 4MG INJ IV PRN (16:15)
[2020-10-19] MEDS ORDERED: LACTULOSE 20 GM/30 ML UDCUP PO PRN (16:15)
[2020-10-19] MEDS ORDERED: DIPHENHYDRAMINE HCL 25 MG CAPSULE PO PRN (16:15)
[2020-10-19] MEDS ORDERED: DiphenhydrAMINE HCL 50 MG/ML VIAL IV PRN (16:15)
[2020-10-19] MEDS ORDERED: DEXTROSE 50%-WATER 50 ML DISP.SYRIN IV PRN (16:30)
[2020-10-19] MEDS ORDERED: GLUCAGON 1MG KIT 1 MG ML IM PRN (16:30)
[2020-10-19 16:41] VITALS: BP 105/65
[2020-10-19 17:23] LABS: EOSINOPHILS % (AUTO) 5.9 % (0.0-8.0); LYMPHOCYTES % (AUTO) 19.9 % (21.0-51.0); MEAN CORPUSCULAR HEMOGLOBIN 24.9 pg (27.0-33.0); MEAN CORPUSCULAR HGB CONC 31.3 g/dL (32.0-36.0); MEAN CORPUSCULAR VOLUME 79.5 fL (79-99); MONOCYTES % (AUTO) 6.9 % (3.0-13.0); NEUTROPHILS % (AUTO) 65.6 % (40.0-77.0); PLATELET COUNT (AUTO) 621 K/uL (130-400); RED CELL DISTRIBUTION WIDTH 13.8 % (11.0-15.5); WHITE BLOOD COUNT (AUTO) 10.7 K/uL (4.8-10.8)
[2020-10-19 17:35] LABS: HEMOGLOBIN A1C 9.7 % (4.0-6.0)
[2020-10-19 17:36] LABS: INR 0.99 (0.85-1.15); PROTHROMBIN TIME 10.8 SEC (9.6-11.6)
[2020-10-19 17:37] LABS: PARTIAL THROMBOPLASTIN TIME 27.3 SEC (26.3-35.5)
[2020-10-19] MEDS: INSULIN HUMULIN R 100 UNIT/ML 3ML SQ SCH ×3 (17:37→23:45)
[2020-10-19 17:38] LABS: CREATININE 2.4 mg/dL (0.5-1.5); POTASSIUM 5.3 mmol/L (3.5-5.1)
[2020-10-19 17:43] LABS: ALBUMIN 2.9 g/dL (3.5-5.0); BILIRUBIN,TOTAL 0.1 mg/dL (0.2-1.0); CRP QUANTITATIVE 47.1 mg/L (0.00-9.0); TOTAL PROTEIN, SERUM 9.1 g/dL (6.0-8.3)
[2020-10-19 19:00] VITALS: BP 102/52
[2020-10-19 21:00] VITALS: BP 104/61
[2020-10-19 23:00] VITALS: BP 110/57
[2020-10-19] MEDS: HEPARIN 5,000 UNIT VIAL SQ SCH (23:45)
[2020-10-19] MEDS: FAMOTIDINE 20MG TAB PO SCH (23:45)
[2020-10-20] VITALS (30 sets, daily range): BP systolic 101–139; BP diastolic 49–83
[2020-10-20] MEDS: INSULIN HUMULIN R 100 UNIT/ML 3ML SQ SCH ×6 (00:05→22:34)
[2020-10-20 05:50] LABS: BASOPHILS % (AUTO) 1.1 % (0.0-5.0); HEMATOCRIT 30.4 % (42-54); LYMPHOCYTES % (AUTO) 20.9 % (21.0-51.0); MEAN CORPUSCULAR HEMOGLOBIN 25.3 pg (27.0-33.0); MEAN CORPUSCULAR HGB CONC 31.6 g/dL (32.0-36.0); MEAN CORPUSCULAR VOLUME 80.2 fL (79-99); MONOCYTES % (AUTO) 7.1 % (3.0-13.0); NEUTROPHILS % (AUTO) 63.1 % (40.0-77.0); PLATELET COUNT (AUTO) 555 K/uL (130-400); RED BLOOD CELL COUNT(AUTO) 3.79 MIL/uL (4.50-6.20); WHITE BLOOD COUNT (AUTO) 10.6 K/uL (4.8-10.8)
[2020-10-20 06:14] LABS: ALBUMIN 2.8 g/dL (3.5-5.0); BILIRUBIN,TOTAL 0.1 mg/dL (0.2-1.0); CREATININE 2.1 mg/dL (0.5-1.5); CRP QUANTITATIVE 47.6 mg/L (0.00-9.0); POTASSIUM 4.8 mmol/L (3.5-5.1); TOTAL PROTEIN, SERUM 8.8 g/dL (6.0-8.3)
[2020-10-20] MEDS: INSULIN GLARGINE 100 UNITS/ML 10 ML VIAL SQ SCH (08:00)
[2020-10-20] MEDS: HEPARIN 5,000 UNIT VIAL SQ SCH ×2 (09:00→21:00)
[2020-10-20] MEDS: SERTRALINE HCL 50 MG TABLET PO SCH (09:00)
[2020-10-20] MEDS: FAMOTIDINE 20MG TAB PO SCH ×2 (09:00→22:30)
[2020-10-20] MEDS: ZOSYN 3.375GM+NS 50ML 50 ML IV SCH (16:18)
[2020-10-20] MEDS: LINEZOLID 600 MG/ISO-OSM 300 ML IV SCH (16:19)
[2020-10-20] MEDS ORDERED: LIDOCAINE HCL MPF 1% 5ML VIAL ONE (16:41)
[2020-10-20] MEDS ORDERED: FENTANYL CITRATE PF 50 MCG/1 ML 2ML VIAL ONE ×2 (16:41→17:17)
[2020-10-20] MEDS ORDERED: SUCCINYLCHOLINE 200MG/10ML SYR ONE (16:41)
[2020-10-20] MEDS ORDERED: MIDAZOLAM HCL 1 MG/ML 2ML VIAL ONE ×2 (16:41→18:31)
[2020-10-20] MEDS ORDERED: PROPOFOL 10 MG/ML 20ML VIAL IV ONE (16:41)
[2020-10-20] MEDS ORDERED: ROCURONIUM 10MG/1ML SYR 10 MG/ML ML ONE (16:58)
[2020-10-20] MEDS ORDERED: EPHEDRINE SULFATE 50 MG/ML AMPULE ONE (17:13)
[2020-10-20] MEDS ORDERED: GLYCOPYRROLATE 1 MG/5 ML SYRINGE ONE (17:45)
[2020-10-20] MEDS ORDERED: NEOSTIGMINE 5MG/5ML SYR IV ONE (17:45)
[2020-10-20] MEDS ORDERED: SUGAMMADEX SODIUM 200 MG/2 ML VIAL IV ONE (17:56)
[2020-10-20] MEDS ORDERED: TRAMADOL HCL 50 MG TABLET PO PRN (18:00)
[2020-10-20] MEDS ORDERED: KCL 20 MEQ ERTAB PO PRN (18:00)
[2020-10-20] MEDS ORDERED: OXYCODONE HCL 5 MG TAB PO PRN ×2 (18:00)
[2020-10-20] MEDS ORDERED: DiphenhydrAMINE HCL 50 MG/ML VIAL IVP PRN (18:00)
[2020-10-20] MEDS ORDERED: POTASSIUM CHLORIDE 10% ELIXIR 20 MEQ/15 ML UDCUP PO PRN (18:00)
[2020-10-20] MEDS ORDERED: POTASSIUM CHLORIDE 20MEQ/100ML 100 ML IV PRN (18:00)
[2020-10-20] MEDS ORDERED: FERROUS FUMARATE 324 MG TABLET PO PRN (18:00)
[2020-10-20] MEDS ORDERED: CALCIUM CARB 500MG PO PRN (18:00)
[2020-10-20] MEDS: ACETAMINOPHEN 500 MG TABLET PO SCH (18:00)
[2020-10-20] MEDS ORDERED: DIPHENHYDRAMINE HCL 25 MG CAPSULE PO PRN (18:00)
[2020-10-20] MEDS ORDERED: KETAMINE 50MG/ML SYRINGE 50 MG/ML DISP.SYRIN IV ONE (18:17)
[2020-10-20] MEDS: 0.9%NACL 1000ML 1,000 ML IV SCH ×2 (18:55→22:31)
[2020-10-20] MEDS ORDERED: ALBUMIN (HUMAN) 5% 250 ML IV ONE (19:07)
[2020-10-20 19:49] LABS: HEMATOCRIT 25.9 % (42-54)
[2020-10-20] MEDS ORDERED: MORPHINE 2 MG SYG IVP PRN (23:00)
[2020-10-21] MEDS: ZOSYN 3.375GM+NS 50ML 50 ML IV SCH ×3 (00:04→17:33)
[2020-10-21] MEDS: ACETAMINOPHEN 500 MG TABLET PO SCH ×3 (02:37→20:21)
[2020-10-21] MEDS: LINEZOLID 600 MG/ISO-OSM 300 ML IV SCH ×2 (02:38→17:33)
[2020-10-21 03:49] VITALS: BP 128/73
[2020-10-21] MEDS: 0.9%NACL 1000ML 1,000 ML IV SCH ×2 (04:00→14:00)
[2020-10-21 05:03] LABS: BASOPHILS % (AUTO) 0.7 % (0.0-5.0); EOSINOPHILS % (AUTO) 2.4 % (0.0-8.0); HEMATOCRIT 21.6 % (42-54); LYMPHOCYTES % (AUTO) 17.7 % (21.0-51.0); MEAN CORPUSCULAR HEMOGLOBIN 25.1 pg (27.0-33.0); MEAN CORPUSCULAR VOLUME 80.9 fL (79-99); MONOCYTES % (AUTO) 5.9 % (3.0-13.0); NEUTROPHILS % (AUTO) 72.7 % (40.0-77.0); PLATELET COUNT (AUTO) 418 K/uL (130-400); RED BLOOD CELL COUNT(AUTO) 2.67 MIL/uL (4.50-6.20); WHITE BLOOD COUNT (AUTO) 11.6 K/uL (4.8-10.8)
[2020-10-21 05:13] LABS: ALBUMIN 2.3 g/dL (3.5-5.0); BILIRUBIN,TOTAL 0.2 mg/dL (0.2-1.0); CRP QUANTITATIVE 52.1 mg/L (0.00-9.0); POTASSIUM 4.8 mmol/L (3.5-5.1)
[2020-10-21] MEDS: INSULIN HUMULIN R 100 UNIT/ML 3ML SQ SCH ×7 (06:44→20:09)
[2020-10-21 07:13] LABS: HEMATOCRIT 21.1 % (42-54)
[2020-10-21 08:00] VITALS: BP 125/68
[2020-10-21] MEDS: POLYETHYLENE GLYCOL 3350 17 GM POWD.PACK PO SCH (09:00)
[2020-10-21] MEDS: SERTRALINE HCL 50 MG TABLET PO SCH (09:17)
[2020-10-21] MEDS: FAMOTIDINE 20MG TAB PO SCH ×2 (09:17→20:22)
[2020-10-21] MEDS: INSULIN GLARGINE 100 UNITS/ML 10 ML VIAL SQ SCH (09:24)
[2020-10-21 12:00] VITALS: BP 122/77
[2020-10-21] MEDS: PSYLLIUM SEED 1 EACH PACKET PO SCH (12:32)
[2020-10-21 16:00] VITALS: BP 115/66
[2020-10-21 19:36] VITALS: BP 134/77
[2020-10-21 23:45] VITALS: BP 119/60
[2020-10-22] VITALS (10 sets, daily range): BP systolic 135–177; BP diastolic 73–105
[2020-10-22] MEDS: ZOSYN 3.375GM+NS 50ML 50 ML IV SCH ×2 (00:43→10:37)
[2020-10-22] MEDS: ACETAMINOPHEN 500 MG TABLET PO SCH ×2 (00:46→10:00)
[2020-10-22] MEDS: LINEZOLID 600 MG/ISO-OSM 300 ML IV SCH (04:37)
[2020-10-22 05:22] LABS: HEMATOCRIT 24.4 % (42-54); MEAN CORPUSCULAR HEMOGLOBIN 26.4 pg (27.0-33.0); MEAN CORPUSCULAR VOLUME 82.4 fL (79-99); RED BLOOD CELL COUNT(AUTO) 2.96 MIL/uL (4.50-6.20); RED CELL DISTRIBUTION WIDTH 13.9 % (11.0-15.5); WHITE BLOOD COUNT (AUTO) 10.6 K/uL (4.8-10.8)
[2020-10-22 05:47] LABS: ALBUMIN 2.7 g/dL (3.5-5.0); BILIRUBIN,TOTAL 0.2 mg/dL (0.2-1.0); CREATININE 1.6 mg/dL (0.5-1.5); CRP QUANTITATIVE 58.9 mg/L (0.00-9.0); POTASSIUM 4.5 mmol/L (3.5-5.1)
[2020-10-22] MEDS: INSULIN HUMULIN R 100 UNIT/ML 3ML SQ SCH ×6 (06:38→20:53)
[2020-10-22] MEDS: INSULIN GLARGINE 100 UNITS/ML 10 ML VIAL SQ SCH (08:00)
[2020-10-22] MEDS: SERTRALINE HCL 50 MG TABLET PO SCH (09:00)
[2020-10-22] MEDS: FAMOTIDINE 20MG TAB PO SCH ×2 (09:00→20:53)
[2020-10-22] MEDS: POLYETHYLENE GLYCOL 3350 17 GM POWD.PACK PO SCH (09:00)
[2020-10-22] MEDS: PSYLLIUM SEED 1 EACH PACKET PO SCH (12:00)
[2020-10-22] MEDS: CEFAZOLIN SODIUM 1 GM VIAL IVP SCH ×2 (13:57→20:53)
[2020-10-22 15:40] LABS: BASOPHILS % (AUTO) 0.7 % (0.0-5.0); EOSINOPHILS % (AUTO) 5.1 % (0.0-8.0); HEMATOCRIT 24.9 % (42-54); MEAN CORPUSCULAR HEMOGLOBIN 25.6 pg (27.0-33.0); MEAN CORPUSCULAR HGB CONC 30.5 g/dL (32.0-36.0); MEAN CORPUSCULAR VOLUME 83.8 fL (79-99); MONOCYTES % (AUTO) 5.7 % (3.0-13.0); NEUTROPHILS % (AUTO) 65.7 % (40.0-77.0); PLATELET COUNT (AUTO) 448 K/uL (130-400); RED BLOOD CELL COUNT(AUTO) 2.97 MIL/uL (4.50-6.20); RED CELL DISTRIBUTION WIDTH 13.8 % (11.0-15.5); WHITE BLOOD COUNT (AUTO) 10.4 K/uL (4.8-10.8)
[2020-10-22] MEDS ORDERED: 0.9% NACL 250ML 250 ML ONE (17:21)
[2020-10-22] MEDS ORDERED: BISACODYL 5 MG TABLET.DR PO PRN (18:00)
[2020-10-23] VITALS (7 sets, daily range): BP systolic 131–145; BP diastolic 70–94
[2020-10-23] MEDS: ACETAMINOPHEN 500 MG TABLET PO SCH ×3 (02:00→18:44)
[2020-10-23 05:19] LABS: BASOPHILS % (AUTO) 0.8 % (0.0-5.0); EOSINOPHILS % (AUTO) 7.2 % (0.0-8.0); HEMATOCRIT 27.2 % (42-54); LYMPHOCYTES % (AUTO) 26.5 % (21.0-51.0); MEAN CORPUSCULAR HEMOGLOBIN 25.2 pg (27.0-33.0); MEAN CORPUSCULAR HGB CONC 30.1 g/dL (32.0-36.0); MEAN CORPUSCULAR VOLUME 83.4 fL (79-99); MONOCYTES % (AUTO) 7.9 % (3.0-13.0); NEUTROPHILS % (AUTO) 56.5 % (40.0-77.0); PLATELET COUNT (AUTO) 452 K/uL (130-400); RED BLOOD CELL COUNT(AUTO) 3.26 MIL/uL (4.50-6.20); WHITE BLOOD COUNT (AUTO) 10.5 K/uL (4.8-10.8)
[2020-10-23 05:45] LABS: % IRON SATURATION 19.8 % (30-44)
[2020-10-23] MEDS: INSULIN HUMULIN R 100 UNIT/ML 3ML SQ SCH ×7 (05:58→21:13)
[2020-10-23] MEDS: CEFAZOLIN SODIUM 1 GM VIAL IVP SCH ×3 (05:59→21:12)
[2020-10-23 06:08] LABS: CREATININE 1.5 mg/dL (0.5-1.5); CRP QUANTITATIVE 65.1 mg/L (0.00-9.0); POTASSIUM 4.6 mmol/L (3.5-5.1); THYROID STIMULATING HORMONE 3.08 uIU/mL (0.36-3.74)
[2020-10-23 06:31] LABS: ERYTHROCYTE SEDIMENTATION RATE > 150 MM/HR (0-15)
[2020-10-23] MEDS: INSULIN GLARGINE 100 UNITS/ML 10 ML VIAL SQ SCH (06:50)
[2020-10-23] MEDS: SERTRALINE HCL 50 MG TABLET PO SCH (09:10)
[2020-10-23] MEDS: POLYETHYLENE GLYCOL 3350 17 GM POWD.PACK PO SCH (09:10)
[2020-10-23] MEDS: FAMOTIDINE 20MG TAB PO SCH ×2 (09:10→21:11)
[2020-10-23] MEDS: PSYLLIUM SEED 1 EACH PACKET PO SCH (13:20)
[2020-10-23 15:49] LABS: INR 0.96 (0.85-1.15); PROTHROMBIN TIME 10.5 SEC (9.6-11.6)
[2020-10-23 15:50] LABS: PARTIAL THROMBOPLASTIN TIME 26.2 SEC (26.3-35.5)
[2020-10-23] MEDS ORDERED: BISACODYL 10 MG SUPP.RECT RC PRN (18:00)
[2020-10-24] MEDS: ACETAMINOPHEN 500 MG TABLET PO SCH ×3 (01:28→17:30)
[2020-10-24 04:04] VITALS: BP 148/78
[2020-10-24] MEDS: CEFAZOLIN SODIUM 1 GM VIAL IVP SCH ×3 (04:30→21:09)
[2020-10-24 04:50] LABS: BASOPHILS % (AUTO) 0.9 % (0.0-5.0); EOSINOPHILS % (AUTO) 7.8 % (0.0-8.0); HEMATOCRIT 25.2 % (42-54); LYMPHOCYTES % (AUTO) 27.6 % (21.0-51.0); MEAN CORPUSCULAR HEMOGLOBIN 26.1 pg (27.0-33.0); MEAN CORPUSCULAR HGB CONC 31.7 g/dL (32.0-36.0); MEAN CORPUSCULAR VOLUME 82.4 fL (79-99); MONOCYTES % (AUTO) 6.8 % (3.0-13.0); NEUTROPHILS % (AUTO) 55.3 % (40.0-77.0); PLATELET COUNT (AUTO) 425 K/uL (130-400); RED BLOOD CELL COUNT(AUTO) 3.06 MIL/uL (4.50-6.20); RED CELL DISTRIBUTION WIDTH 13.9 % (11.0-15.5); WHITE BLOOD COUNT (AUTO) 10.8 K/uL (4.8-10.8)
[2020-10-24 04:58] LABS: CREATININE 1.3 mg/dL (0.5-1.5)
[2020-10-24] MEDS: INSULIN HUMULIN R 100 UNIT/ML 3ML SQ SCH ×7 (06:13→21:18)
[2020-10-24] MEDS: INSULIN GLARGINE 100 UNITS/ML 10 ML VIAL SQ SCH (06:38)
[2020-10-24 08:17] VITALS: BP 123/62
[2020-10-24] MEDS: POLYETHYLENE GLYCOL 3350 17 GM POWD.PACK PO SCH (10:33)
[2020-10-24] MEDS: SERTRALINE HCL 50 MG TABLET PO SCH (10:33)
[2020-10-24] MEDS: FAMOTIDINE 20MG TAB PO SCH ×2 (10:33→21:09)
[2020-10-24 11:52] VITALS: BP 139/77
[2020-10-24] MEDS: PSYLLIUM SEED 1 EACH PACKET PO SCH (12:45)
[2020-10-24 17:13] VITALS: BP 125/79
[2020-10-24 20:00] VITALS: BP 122/77
[2020-10-25] VITALS (7 sets, daily range): BP systolic 115–149; BP diastolic 68–87
[2020-10-25] MEDS: ACETAMINOPHEN 500 MG TABLET PO SCH ×3 (02:00→17:50)
[2020-10-25 04:25] LABS: BASOPHILS % (AUTO) 0.7 % (0.0-5.0); EOSINOPHILS % (AUTO) 8.2 % (0.0-8.0); HEMATOCRIT 25.8 % (42-54); LYMPHOCYTES % (AUTO) 26.2 % (21.0-51.0); MEAN CORPUSCULAR HEMOGLOBIN 25.2 pg (27.0-33.0); MEAN CORPUSCULAR VOLUME 81.1 fL (79-99); MONOCYTES % (AUTO) 6.3 % (3.0-13.0); NEUTROPHILS % (AUTO) 57.1 % (40.0-77.0); PLATELET COUNT (AUTO) 541 K/uL (130-400); RED BLOOD CELL COUNT(AUTO) 3.18 MIL/uL (4.50-6.20); WHITE BLOOD COUNT (AUTO) 12.3 K/uL (4.8-10.8)
[2020-10-25] MEDS: CEFAZOLIN SODIUM 1 GM VIAL IVP SCH ×3 (04:42→19:52)
[2020-10-25 04:47] LABS: CREATININE 1.6 mg/dL (0.5-1.5)
[2020-10-25] MEDS: INSULIN HUMULIN R 100 UNIT/ML 3ML SQ SCH ×7 (05:47→19:53)
[2020-10-25] MEDS ORDERED: COMPOUND IV MISC 1 EACH IVSOLN MISC PRN (08:30)
[2020-10-25] MEDS: POLYETHYLENE GLYCOL 3350 17 GM POWD.PACK PO SCH (09:00)
[2020-10-25] MEDS: SERTRALINE HCL 50 MG TABLET PO SCH (10:59)
[2020-10-25] MEDS: IRON SUCROSE COMPLEX 300 MG in 0.9%NACL 50ML 50 ML IV SCH (10:59)
[2020-10-25] MEDS: FAMOTIDINE 20MG TAB PO SCH ×2 (10:59→19:51)
[2020-10-25] MEDS: INSULIN GLARGINE 100 UNITS/ML 10 ML VIAL SQ SCH (11:08)
[2020-10-25] MEDS: PSYLLIUM SEED 1 EACH PACKET PO SCH (12:39)
[2020-10-26] MEDS: ACETAMINOPHEN 500 MG TABLET PO SCH ×3 (02:00→17:07)
[2020-10-26 03:56] VITALS: BP 122/70
[2020-10-26] MEDS: CEFAZOLIN SODIUM 1 GM VIAL IVP SCH ×3 (04:48→21:15)
[2020-10-26 05:27] LABS: BASOPHILS % (AUTO) 0.7 % (0.0-5.0); EOSINOPHILS % (AUTO) 7.4 % (0.0-8.0); HEMATOCRIT 25.3 % (42-54); LYMPHOCYTES % (AUTO) 22.9 % (21.0-51.0); MEAN CORPUSCULAR HEMOGLOBIN 25.6 pg (27.0-33.0); MEAN CORPUSCULAR HGB CONC 31.2 g/dL (32.0-36.0); MEAN CORPUSCULAR VOLUME 82.1 fL (79-99); MONOCYTES % (AUTO) 7.1 % (3.0-13.0); PLATELET COUNT (AUTO) 466 K/uL (130-400); RED BLOOD CELL COUNT(AUTO) 3.08 MIL/uL (4.50-6.20); RED CELL DISTRIBUTION WIDTH 14.3 % (11.0-15.5); WHITE BLOOD COUNT (AUTO) 12.3 K/uL (4.8-10.8)
[2020-10-26 05:36] LABS: CREATININE 1.3 mg/dL (0.5-1.5); POTASSIUM 3.6 mmol/L (3.5-5.1)
[2020-10-26 07:18] VITALS: BP 121/73
[2020-10-26] MEDS: IRON SUCROSE COMPLEX 300 MG in 0.9%NACL 50ML 50 ML IV SCH (09:00)
[2020-10-26] MEDS: INSULIN HUMULIN R 100 UNIT/ML 3ML SQ SCH ×7 (10:35→21:14)
[2020-10-26] MEDS: POLYETHYLENE GLYCOL 3350 17 GM POWD.PACK PO SCH (11:14)
[2020-10-26] MEDS: FAMOTIDINE 20MG TAB PO SCH ×2 (11:15→21:15)
[2020-10-26] MEDS: SERTRALINE HCL 50 MG TABLET PO SCH (11:16)
[2020-10-26] MEDS: INSULIN GLARGINE 100 UNITS/ML 10 ML VIAL SQ SCH (11:18)
[2020-10-26 11:20] VITALS: BP 114/64
[2020-10-26] MEDS: PSYLLIUM SEED 1 EACH PACKET PO SCH (12:19)
[2020-10-26 16:00] VITALS: BP 126/70
[2020-10-26 19:57] VITALS: BP 113/61
[2020-10-26 23:38] VITALS: BP 125/79
[2020-10-27] MEDS: ACETAMINOPHEN 500 MG TABLET PO SCH ×3 (02:33→17:23)
[2020-10-27 03:57] VITALS: BP 132/76
[2020-10-27] MEDS: INSULIN HUMULIN R 100 UNIT/ML 3ML SQ SCH ×7 (05:56→21:00)
[2020-10-27] MEDS: CEFAZOLIN SODIUM 1 GM VIAL IVP SCH ×3 (06:13→21:08)
[2020-10-27 07:57] LABS: CREATININE 1.3 mg/dL (0.5-1.5); POTASSIUM 3.7 mmol/L (3.5-5.1)
[2020-10-27] MEDS: INSULIN GLARGINE 100 UNITS/ML 10 ML VIAL SQ SCH (08:00)
[2020-10-27 08:17] LABS: BASOPHILS % (AUTO) 0.8 % (0.0-5.0); EOSINOPHILS % (AUTO) 7.9 % (0.0-8.0); HEMATOCRIT 26.3 % (42-54); LYMPHOCYTES % (AUTO) 20.8 % (21.0-51.0); MEAN CORPUSCULAR HGB CONC 31.6 g/dL (32.0-36.0); MEAN CORPUSCULAR VOLUME 82.4 fL (79-99); MONOCYTES % (AUTO) 6.6 % (3.0-13.0); NEUTROPHILS % (AUTO) 61.3 % (40.0-77.0); PLATELET COUNT (AUTO) 524 K/uL (130-400); RED BLOOD CELL COUNT(AUTO) 3.19 MIL/uL (4.50-6.20); RED CELL DISTRIBUTION WIDTH 14.6 % (11.0-15.5); WHITE BLOOD COUNT (AUTO) 11.8 K/uL (4.8-10.8)
[2020-10-27 08:19] VITALS: BP 121/73
[2020-10-27] MEDS: IRON SUCROSE COMPLEX 300 MG in 0.9%NACL 50ML 50 ML IV SCH (09:17)
[2020-10-27] MEDS: POLYETHYLENE GLYCOL 3350 17 GM POWD.PACK PO SCH (09:17)
[2020-10-27] MEDS: SERTRALINE HCL 50 MG TABLET PO SCH (09:18)
[2020-10-27] MEDS: FAMOTIDINE 20MG TAB PO SCH ×2 (09:18→21:08)
[2020-10-27] MEDS: PSYLLIUM SEED 1 EACH PACKET PO SCH (12:22)
[2020-10-27 12:35] VITALS: BP 118/75
[2020-10-27 16:18] VITALS: BP 110/68
[2020-10-27 19:56] VITALS: BP 132/77
[2020-10-28 00:07] VITALS: BP 117/75
[2020-10-28] MEDS: ACETAMINOPHEN 500 MG TABLET PO SCH ×3 (02:06→17:13)
[2020-10-28 03:39] VITALS: BP 118/62
[2020-10-28] MEDS: CEFAZOLIN SODIUM 1 GM VIAL IVP SCH ×3 (05:02→21:42)
[2020-10-28] MEDS: INSULIN HUMULIN R 100 UNIT/ML 3ML SQ SCH ×7 (05:28→21:00)
[2020-10-28 05:45] LABS: BASOPHILS % (AUTO) 0.8 % (0.0-5.0); EOSINOPHILS % (AUTO) 8.2 % (0.0-8.0); HEMATOCRIT 25.8 % (42-54); LYMPHOCYTES % (AUTO) 26.9 % (21.0-51.0); MEAN CORPUSCULAR HEMOGLOBIN 25.2 pg (27.0-33.0); MEAN CORPUSCULAR HGB CONC 30.6 g/dL (32.0-36.0); MEAN CORPUSCULAR VOLUME 82.2 fL (79-99); MONOCYTES % (AUTO) 7.6 % (3.0-13.0); NEUTROPHILS % (AUTO) 54.4 % (40.0-77.0); PLATELET COUNT (AUTO) 517 K/uL (130-400); RED BLOOD CELL COUNT(AUTO) 3.14 MIL/uL (4.50-6.20); RED CELL DISTRIBUTION WIDTH 14.8 % (11.0-15.5); WHITE BLOOD COUNT (AUTO) 10.7 K/uL (4.8-10.8)
[2020-10-28 05:53] LABS: CREATININE 1.4 mg/dL (0.5-1.5); POTASSIUM 3.7 mmol/L (3.5-5.1)
[2020-10-28 08:13] VITALS: BP 130/76
[2020-10-28] MEDS: SERTRALINE HCL 50 MG TABLET PO SCH (09:13)
[2020-10-28] MEDS: FAMOTIDINE 20MG TAB PO SCH ×2 (09:13→21:42)
[2020-10-28] MEDS: POLYETHYLENE GLYCOL 3350 17 GM POWD.PACK PO SCH (09:13)
[2020-10-28] MEDS: INSULIN GLARGINE 100 UNITS/ML 10 ML VIAL SQ SCH (09:17)
[2020-10-28 11:36] VITALS: BP 148/77
[2020-10-28] MEDS: PSYLLIUM SEED 1 EACH PACKET PO SCH (13:14)
[2020-10-28 16:00] VITALS: BP 135/79
[2020-10-28] MEDS ORDERED: ALTEPLASE 2MG VIAL 2 MG/VIAL VIAL IVCATH SCH (19:45)
[2020-10-28 19:55] VITALS: BP 143/80
[2020-10-29] VITALS (7 sets, daily range): BP systolic 122–135; BP diastolic 71–82
[2020-10-29] MEDS: ACETAMINOPHEN 500 MG TABLET PO SCH ×3 (02:01→17:57)
[2020-10-29] MEDS: INSULIN HUMULIN R 100 UNIT/ML 3ML SQ SCH ×7 (05:41→21:00)
[2020-10-29] MEDS: CEFAZOLIN SODIUM 1 GM VIAL IVP SCH ×3 (05:57→21:46)
[2020-10-29 06:37] LABS: EOSINOPHILS % (AUTO) 8.1 % (0.0-8.0); LYMPHOCYTES % (AUTO) 24.7 % (21.0-51.0); MEAN CORPUSCULAR HEMOGLOBIN 26.1 pg (27.0-33.0); MEAN CORPUSCULAR HGB CONC 31.2 g/dL (32.0-36.0); MEAN CORPUSCULAR VOLUME 83.9 fL (79-99); MONOCYTES % (AUTO) 7.4 % (3.0-13.0); NEUTROPHILS % (AUTO) 57.1 % (40.0-77.0); PLATELET COUNT (AUTO) 472 K/uL (130-400); RED CELL DISTRIBUTION WIDTH 15.3 % (11.0-15.5); WHITE BLOOD COUNT (AUTO) 9.4 K/uL (4.8-10.8)
[2020-10-29 06:44] LABS: CREATININE 1.3 mg/dL (0.5-1.5); POTASSIUM 3.9 mmol/L (3.5-5.1)
[2020-10-29] MEDS: FAMOTIDINE 20MG TAB PO SCH ×2 (08:50→21:47)
[2020-10-29] MEDS: SERTRALINE HCL 50 MG TABLET PO SCH (08:51)
[2020-10-29] MEDS: POLYETHYLENE GLYCOL 3350 17 GM POWD.PACK PO SCH (08:51)
[2020-10-29] MEDS: INSULIN GLARGINE 100 UNITS/ML 10 ML VIAL SQ SCH (08:57)
[2020-10-29] MEDS: PSYLLIUM SEED 1 EACH PACKET PO SCH (13:07)
[2020-10-30] MEDS: ACETAMINOPHEN 500 MG TABLET PO SCH ×3 (02:37→18:48)
[2020-10-30 03:16] VITALS: BP 115/67
[2020-10-30] MEDS: CEFAZOLIN SODIUM 1 GM VIAL IVP SCH ×3 (05:26→21:14)
[2020-10-30] MEDS: INSULIN HUMULIN R 100 UNIT/ML 3ML SQ SCH ×7 (05:30→20:54)
[2020-10-30 05:34] LABS: BASOPHILS % (AUTO) 0.8 % (0.0-5.0); HEMATOCRIT 26.4 % (42-54); LYMPHOCYTES % (AUTO) 25.5 % (21.0-51.0); MEAN CORPUSCULAR HEMOGLOBIN 25.5 pg (27.0-33.0); MEAN CORPUSCULAR HGB CONC 30.7 g/dL (32.0-36.0); MONOCYTES % (AUTO) 7.5 % (3.0-13.0); NEUTROPHILS % (AUTO) 57.2 % (40.0-77.0); PLATELET COUNT (AUTO) 488 K/uL (130-400); RED BLOOD CELL COUNT(AUTO) 3.18 MIL/uL (4.50-6.20); RED CELL DISTRIBUTION WIDTH 15.1 % (11.0-15.5); WHITE BLOOD COUNT (AUTO) 10.6 K/uL (4.8-10.8)
[2020-10-30 05:41] LABS: CREATININE 1.3 mg/dL (0.5-1.5); POTASSIUM 3.9 mmol/L (3.5-5.1)
[2020-10-30 08:00] VITALS: BP 150/78
[2020-10-30] MEDS: FAMOTIDINE 20MG TAB PO SCH ×2 (09:45→21:13)
[2020-10-30] MEDS: SERTRALINE HCL 50 MG TABLET PO SCH (09:45)
[2020-10-30] MEDS: POLYETHYLENE GLYCOL 3350 17 GM POWD.PACK PO SCH (09:45)
[2020-10-30] MEDS: INSULIN GLARGINE 100 UNITS/ML 10 ML VIAL SQ SCH (09:46)
[2020-10-30] MEDS: PSYLLIUM SEED 1 EACH PACKET PO SCH (11:58)
[2020-10-30 12:00] VITALS: BP 140/84
[2020-10-30 16:00] VITALS: BP 140/90
[2020-10-30 19:38] VITALS: BP 131/77
[2020-10-30 23:35] VITALS: BP 138/77
[2020-10-31] VITALS (27 sets, daily range): BP systolic 117–155; BP diastolic 65–98
[2020-10-31] MEDS: ACETAMINOPHEN 500 MG TABLET PO SCH ×5 (02:00→17:29)
[2020-10-31] MEDS: CEFAZOLIN SODIUM 1 GM VIAL IVP SCH ×3 (05:28→21:05)
[2020-10-31] MEDS ORDERED: FENTANYL CITRATE PF 50 MCG/1 ML 5ML AMP IV ONE (06:15)
[2020-10-31] MEDS: INSULIN HUMULIN R 100 UNIT/ML 3ML SQ SCH ×7 (06:23→21:12)
[2020-10-31] MEDS ORDERED: LIDOCAINE PF 100MG/5ML (2%) SYRINGE 5ML ONE (06:27)
[2020-10-31] MEDS ORDERED: ROPIVACAINE 0.5% 5MG/ML 30ML IJ ONE (06:28)
[2020-10-31] MEDS ORDERED: KETAMINE 50MG/ML SYRINGE 50 MG/ML DISP.SYRIN IV ONE (06:28)
[2020-10-31] MEDS ORDERED: MIDAZOLAM HCL 1 MG/ML 2ML VIAL ONE (06:31)
[2020-10-31] MEDS ORDERED: PROPOFOL 10 MG/ML 20ML VIAL IV ONE ×2 (06:32→08:08)
[2020-10-31] MEDS ORDERED: ONDANSETRON 4MG INJ ONE (06:32)
[2020-10-31] MEDS ORDERED: ROCURONIUM 10MG/1ML SYR 10 MG/ML ML ONE (06:32)
[2020-10-31] MEDS ORDERED: GLYCOPYRROLATE 1 MG/5 ML SYRINGE ONE (08:11)
[2020-10-31] MEDS ORDERED: NEOSTIGMINE 5MG/5ML SYR IV ONE (08:11)
[2020-10-31] MEDS ORDERED: CALCIUM CARB 500MG PO PRN (08:15)
[2020-10-31] MEDS ORDERED: POTASSIUM CHLORIDE 20MEQ/100ML 100 ML IV PRN (08:15)
[2020-10-31] MEDS ORDERED: FERROUS FUMARATE 324 MG TABLET PO PRN (08:15)
[2020-10-31] MEDS ORDERED: DiphenhydrAMINE HCL 50 MG/ML VIAL IVP PRN (08:15)
[2020-10-31] MEDS ORDERED: POTASSIUM CHLORIDE 10% ELIXIR 20 MEQ/15 ML UDCUP PO PRN (08:15)
[2020-10-31] MEDS ORDERED: DIPHENHYDRAMINE HCL 25 MG CAPSULE PO PRN (08:15)
[2020-10-31] MEDS ORDERED: KCL 20 MEQ ERTAB PO PRN (08:15)
[2020-10-31] MEDS ORDERED: FENTANYL CITRATE PF 50 MCG/1 ML 2ML VIAL ONE (08:16)
[2020-10-31] MEDS: 0.9%NACL 1000ML 1,000 ML IV SCH ×3 (08:33→17:30)
[2020-10-31] MEDS: POLYETHYLENE GLYCOL 3350 17 GM POWD.PACK PO SCH (09:00)
[2020-10-31] MEDS ORDERED: POLYETHYLENE GLYCOL 3350 17 GM POWD.PACK PO SCH (09:00)
[2020-10-31] MEDS ORDERED: MEPERIDINE-PF 25 MG/ML SYG ONE (09:07)
[2020-10-31] MEDS: PSYLLIUM SEED 1 EACH PACKET PO SCH ×2 (12:00→13:25)
[2020-10-31] MEDS: INSULIN GLARGINE 100 UNITS/ML 10 ML VIAL SQ SCH (13:24)
[2020-10-31] MEDS: FAMOTIDINE 20MG TAB PO SCH ×2 (13:25→21:05)
[2020-10-31] MEDS: SERTRALINE HCL 50 MG TABLET PO SCH (13:25)
[2020-11-01] VITALS: BP 137/74
[2020-11-01] MEDS: ACETAMINOPHEN 500 MG TABLET PO SCH ×3 (00:39→17:27)
[2020-11-01] MEDS: CEFAZOLIN SODIUM 1 GM VIAL IVP SCH ×2 (05:12→11:35)
[2020-11-01 07:18] LABS: BASOPHILS % (AUTO) 0.5 % (0.0-5.0); HEMATOCRIT 24.1 % (42-54); LYMPHOCYTES % (AUTO) 22.3 % (21.0-51.0); MEAN CORPUSCULAR HEMOGLOBIN 25.7 pg (27.0-33.0); MEAN CORPUSCULAR HGB CONC 30.7 g/dL (32.0-36.0); MEAN CORPUSCULAR VOLUME 83.7 fL (79-99); MONOCYTES % (AUTO) 9.2 % (3.0-13.0); NEUTROPHILS % (AUTO) 64.4 % (40.0-77.0); PLATELET COUNT (AUTO) 381 K/uL (130-400); RED BLOOD CELL COUNT(AUTO) 2.88 MIL/uL (4.50-6.20); RED CELL DISTRIBUTION WIDTH 15.2 % (11.0-15.5); WHITE BLOOD COUNT (AUTO) 11.7 K/uL (4.8-10.8)
[2020-11-01] MEDS: INSULIN HUMULIN R 100 UNIT/ML 3ML SQ SCH ×7 (07:20→21:00)
[2020-11-01 07:43] LABS: ALBUMIN 2.4 g/dL (3.5-5.0); BILIRUBIN,TOTAL 0.1 mg/dL (0.2-1.0); CREATININE 1.4 mg/dL (0.5-1.5); POTASSIUM 4.2 mmol/L (3.5-5.1); TOTAL PROTEIN, SERUM 7.4 g/dL (6.0-8.3)
[2020-11-01] MEDS: SERTRALINE HCL 50 MG TABLET PO SCH (07:57)
[2020-11-01] MEDS: POLYETHYLENE GLYCOL 3350 17 GM POWD.PACK PO SCH (07:59)
[2020-11-01] MEDS: FAMOTIDINE 20MG TAB PO SCH ×2 (07:59→20:59)
[2020-11-01] MEDS: INSULIN GLARGINE 100 UNITS/ML 10 ML VIAL SQ SCH (08:00)
[2020-11-01 08:32] VITALS: BP 123/73
[2020-11-01] MEDS: PSYLLIUM SEED 1 EACH PACKET PO SCH ×2 (11:35→11:36)
[2020-11-01] MEDS: TRAMADOL HCL 50 MG TABLET PO PRN ×2 (12:21→19:03)
[2020-11-01 12:47] VITALS: BP 130/79
[2020-11-01 16:59] VITALS: BP 148/82
[2020-11-01 20:03] VITALS: BP 145/75
[2020-11-01] MEDS ORDERED: KETOROLAC 15MG/ML VIAL (15MG/ML) IV ONE (22:45)
[2020-11-02] MEDS: ACETAMINOPHEN 500 MG TABLET PO SCH ×3 (00:15→17:17)
[2020-11-02 00:23] VITALS: BP 147/81
[2020-11-02 04:02] VITALS: BP 132/75
[2020-11-02] MEDS: INSULIN HUMULIN R 100 UNIT/ML 3ML SQ SCH ×6 (05:37→17:22)
[2020-11-02 08:00] VITALS: BP 134/78
[2020-11-02] MEDS ORDERED: BISACODYL 5 MG TABLET.DR PO PRN (08:15)
[2020-11-02] MEDS: INSULIN GLARGINE 100 UNITS/ML 10 ML VIAL SQ SCH (08:59)
[2020-11-02] MEDS: POLYETHYLENE GLYCOL 3350 17 GM POWD.PACK PO SCH (09:00)
[2020-11-02] MEDS: FAMOTIDINE 20MG TAB PO SCH (09:00)
[2020-11-02] MEDS ORDERED: CLOPIDOGREL 75MG TAB PO SCH (09:00)
[2020-11-02] MEDS ORDERED: ASPIRIN 81MG CHEW TAB PO SCH (09:00)
[2020-11-02] MEDS: SERTRALINE HCL 50 MG TABLET PO SCH (09:00)
[2020-11-02 09:28] LABS: BASOPHILS % (AUTO) 0.8 % (0.0-5.0); EOSINOPHILS % (AUTO) 5.6 % (0.0-8.0); HEMATOCRIT 24.5 % (42-54); LYMPHOCYTES % (AUTO) 26.4 % (21.0-51.0); MEAN CORPUSCULAR HEMOGLOBIN 26.5 pg (27.0-33.0); MEAN CORPUSCULAR VOLUME 85.4 fL (79-99); MONOCYTES % (AUTO) 8.6 % (3.0-13.0); NEUTROPHILS % (AUTO) 57.9 % (40.0-77.0); PLATELET COUNT (AUTO) 395 K/uL (130-400); RED BLOOD CELL COUNT(AUTO) 2.87 MIL/uL (4.50-6.20); RED CELL DISTRIBUTION WIDTH 15.3 % (11.0-15.5)
[2020-11-02 09:54] LABS: CREATININE 1.1 mg/dL (0.5-1.5); POTASSIUM 3.8 mmol/L (3.5-5.1)
[2020-11-02] MEDS: PSYLLIUM SEED 1 EACH PACKET PO SCH ×2 (11:56→12:16)
[2020-11-02 12:17] VITALS: BP 135/79
[2020-11-02 16:28] VITALS: BP 151/87
[2020-11-03] MEDS ORDERED: BISACODYL 10 MG SUPP.RECT RC PRN (08:15)
== END 2020-11-02 19:59 | disposition home or self-care (01) | DRG 475 ==
LOC: EDH 12:44 → EDHIP 16:06 → 3DH 10-20 07:33 → 4CH 10-24 21:54
PROVIDERS: ADMIT Family Medicine; ATTEND Family Medicine
PROC: 0KBS0ZZ Excision of Right Lower Leg Muscle, Open Approach (ICD-10-PCS; 2020-10-20)
PROC: 0Y3H0ZZ Control Bleeding in Right Lower Leg, Open Approach (ICD-10-PCS; 2020-10-20)
PROC: 0HBRXZZ Excision of Toe Nail, External Approach (ICD-10-PCS; 2020-10-20)
PROC: 0HBRXZZ Excision of Toe Nail, External Approach (ICD-10-PCS; 2020-10-20)
PROC: 0HBRXZZ Excision of Toe Nail, External Approach (ICD-10-PCS; 2020-10-20)
PROC: 0HBRXZZ Excision of Toe Nail, External Approach (ICD-10-PCS; 2020-10-20)
PROC: 0HBRXZZ Excision of Toe Nail, External Approach (ICD-10-PCS; 2020-10-20)
PROC: 0Y6H0Z2 Detachment at Right Lower Leg, Mid, Open Approach (ICD-10-PCS; 2020-10-20)
PROC: 30233N1 Transfusion of Nonautologous Red Blood Cells into Peripheral Vein, Percutaneous Approach (ICD-10-PCS; 2020-10-23)
PROC: 05HB33Z Insertion of Infusion Device into Right Basilic Vein, Percutaneous Approach (ICD-10-PCS; 2020-10-23)
PROC: 0Y6C0Z1 Detachment at Right Upper Leg, High, Open Approach (ICD-10-PCS; principal; 2020-10-31 07:30)
DX: T87.43 Infection of amputation stump, right lower extremity (principal); L02.415 Cutaneous abscess of right lower limb; L03.115 Cellulitis of right lower limb; N17.9 Acute kidney failure, unspecified; E11.52 Type 2 diabetes mellitus with diabetic peripheral angiopathy with gangrene; M86.8X6 Other osteomyelitis, lower leg; Z68.41 Body mass index [BMI] 40.0-44.9, adult; R78.81 Bacteremia; T85.698A Other mechanical complication of other specified internal prosthetic devices, implants and grafts, initial encounter; E78.5 Hyperlipidemia, unspecified; F41.9 Anxiety disorder, unspecified; F32.9 Major depressive disorder, single episode, unspecified; I10 Essential (primary) hypertension; E66.01 Morbid (severe) obesity due to excess calories; D64.9 Anemia, unspecified; B95.61 Methicillin susceptible Staphylococcus aureus infection as the cause of diseases classified elsewhere; D50.9 Iron deficiency anemia, unspecified; E11.69 Type 2 diabetes mellitus with other specified complication; E11.621 Type 2 diabetes mellitus with foot ulcer; L97.519 Non-pressure chronic ulcer of other part of right foot with unspecified severity; E11.42 Type 2 diabetes mellitus with diabetic polyneuropathy; Y83.5 Amputation of limb(s) as the cause of abnormal reaction of the patient, or of later complication, without mention of misadventure at the time of the procedure; Z91.19 Patient's noncompliance with other medical treatment and regimen; Z89.512 Acquired absence of left leg below knee; Z88.8 Allergy status to other drugs, medicaments and biological substances; Y92.89 Other specified places as the place of occurrence of the external cause; Z83.3 Family history of diabetes mellitus; Z82.5 Family history of asthma and other chronic lower respiratory diseases; Z80.1 Family history of malignant neoplasm of trachea, bronchus and lung; Z82.49 Family history of ischemic heart disease and other diseases of the circulatory system; Y83.8 Other surgical procedures as the cause of abnormal reaction of the patient, or of later complication, without mention of misadventure at the time of the procedure
CPT/HCPCS: 36415; 36430; 71045; 73218; 80048; 80053; 82607; 82728; 82746; 82948; 83036; 83540; 83550; 83735; 84145; 84443; 85014; 85018; 85025; 85027; 85610; 85651; 85730; 86140; 86850; 86900; 86901; 86923; 87070; 87076; 87077; 87186; 87205; 88304; 88307; 88311; 93005; 93925; C1894; G0378; J0330; J0690; J0696; J1644; J1756; J1815; J1885; J2001; J2020; J2175; J2250; J2405; J2543; J2704; J2710; J2795; J2997; J3010; J3490; J7030; J7050; J7120; P9016; P9045